=== PATIENT | male | born 1950 | race Caucasian/White ===

== ENCOUNTER 2021-07-23 22:08 | Inpatient (IN) | payer MEDICARE, SELFPAY ==
[2021-07-23 21:06] VITALS: BMI 26.9
--- NOTE | 2021-07-23 21:19 | PCM.HP.STD ---
[facility] - General General Date of Admission: 07/23/21 HPI Narrative BETTY CALIX, is a 71 M with a significant history of diabetes mellitus; asthma; hypertension; upper lipidemia; and BPH who was transferred from outside hospital ED ([place], [place]). Patient went to outside hospital ED on 07/22/2021 and then on 07/23/2021. Patient reported that on 07/22/2021 while sitting watching TV he had abdominal pain. He described abdominal pain initially as diffuse and of severity 7 out of 10. He described the pain quality as dull. Associated with symptom is nausea and vomiting. On 07/22/2021 lab work showed leukocytosis. Patient was instructed to follow-up with his PCP. However because his PCPs office was closed on 07/23/2021 he went back to the outside emergency department and was transferred to our hospital because of abnormal CT of the abdomen and pelvis. Although CT of the abdomen and pelvis on 07/22/2021 was unremarkable; a CT of abdomen and pelvis on 07/23/2021 was concerning. On 07/23/2021 patient's abdominal pain became more localized to his right upper quadrant. There are no ameliorating factors to the pain. The pain is aggravated by lying on his right side or by applying pressure to his abdomen. On 07/23/2021 patient did not have any nausea or vomiting. He denies constipation or diarrhea. REPLACED BY [facility] Medical History Asthma BPH (benign prostatic hyperplasia) Diabetes HTN (hypertension) Hyperlipidemia Home Medications C,E,zinc,copper [id number] [Ocuvite Adult 50 Plus] 1 cap PO DAILY 07/23/21 [History Last Taken Unknown] aspirin 81 mg PO DAILY 07/23/21 [History Last Taken Unknown] atorvastatin 40 mg PO QHS 07/23/21 [History Last Taken Unknown] cyanocobalamin (vitamin B-12) QMONTH 07/23/21 [History Last Taken Unknown] empagliflozin [Jardiance] 25 mg PO DAILY 07/23/21 [History Last Taken Unknown] finasteride 5 mg PO DAILY 07/23/21 [History Last Taken Unknown] fluticasone propionate 2 spray INTRANASAL DAILY 07/23/21 [History Last Taken Unknown] loratadine 10 mg PO DAILY 07/23/21 [History Last Taken Unknown] metformin 1,000 mg PO BID 07/23/21 [History Last Taken Unknown] montelukast 10 mg PO DAILY 07/23/21 [History Last Taken Unknown] multivitamin with iron-mineral [Multi M Vitamin] 1 tab PO DAILY 07/23/21 [History Last Taken Unknown] quinapril 10 mg PO DAILY 07/23/21 [History Last Taken Unknown] semaglutide [Rybelsus] 7 mg PO DAILY 07/23/21 [History Last Taken Unknown] Allergy/AdvReac Type Severity Reaction Status Date / Time No Known Allergies Allergy Verified 07/23/21 21:01 Family History Other Alzheimer disease CVA (cerebral vascular accident) Heart disease Surgical History no surgical history no surgical history Social History Smoking Status: Former smoker ROS ROS Narrative Constitutional: Denies fever, chills, fatigue, and change in weight Eyes: Denies blurry vision, change in eye color, change in vision, discharge from eye(s), double vision, erythema, eye pain, loss of vision or other HEENT: Denies abnormal hearing, dysphagia, ear pain, epistaxis, headache(s), hearing loss, nasal congestion, nasal discharge, post nasal drip, sinus pressure, sore throat or other Cardiovascular: Denies chest pain or palpitations. Denies dyspnea on exertion, orthopnea and paroxysmal nocturnal dyspnea Respiratory/Chest: Denies cough, excessive phlegm production, shortness of breath with exertion and wheezing Gastrointestinal: Reports abdominal pain, nausea and vomiting. Denies coffee ground emesis, constipation, diarrhea, dyspepsia, hematemesis, hematochezia, loose stools, melena, nausea, vomiting or other Genitourinary: Denies burning urination, difficulty urinating, dysuria, hematuria, nocturia, urinary frequency, urinary hesitancy, urinary incontinence, urinary urgency or other Musculoskeletal: Denies arthralgias, back pain, joint pain, joint stiffness, joint swelling, myalgias, neck pain or other Neurologic: Denies abnormal gait, abnormal speech, confusion, disequilibrium, dizziness, focal weakness, headache(s), numbness, paresthesias, seizure-like activity, seizures, syncope, tingling, tremor(s) or other Psychiatric: Denies anxiety, depression, homicidal ideation, suicidal ideation or other Endocrinology: Denies change in body appearance, cold intolerance, excessive sweating, heat intolerance, polydipsia, polyuria or other Hematologic/Lymphatic: Denies anemia, easy bleeding, easy bruising, lymphadenopathy or other Integumentary: Denies rashes Allergic/Immunologic: Denies rhinitis, hives, eczema, asthma or other Vital Signs Vital Signs Vital Signs: Weight Weight: 82.781 kg Body Mass Index (BMI) 26.9 Physical Exam Narrative Physical exam: General: Well-nourished, well-developed. Head: Normocephalic, atraumatic, no tenderness Eyes: PERRLA, EOMI ENT, no trauma, moist mucous membranes, no rhinorrhea Neck: Nontender, full range of motion, no spinal tenderness, deformities, step-off CVS: Tachycardia. S1-S2 present. No murmur, gallop or rub. Respiratory : Right base with rales. No wheezing. Chest wall nontender. Abdomen: Soft, normal bowel sounds. Tender right upper quadrant. : Deferred Back: Nontender, no CVA tenderness, no midline spinal tenderness, deformities, step-offs Extremities: Nontender full range of motion, no trauma Skin: Normal color, no trauma, abrasions Neuro: Alert, oriented, cranial nerves II through XII grossly intact. Psychiatry: Normal mood. Normal affect. Not depressed. Not anxious. Assessment & Plan Assessment/Plan (1) Left upper quadrant pain: PLAN: Left upper quadrant pain Differential diagnoses include cholecystitis; duodenitis; biliary disease or other. On presentation to our hospital patient had a low-grade fever of 99.[address]. From outside records CT abdomen and pelvis on 07/22/2021 was not impressive. However CT of the abdomen and Pelvis on 07/23/2021 showed interval development, inflammatory/edematous change right upper quadrant, mesenteric fat at the level of the proximal jejunum and gallbladder with differential acalculous cystitis, duodenal ulcer disease with secondary inflammation of the gallbladder. CTPA at outside hospital was unremarkable and ultrasound of right upper quadrants abdomen was also unremarkable. Of concern is that patient total bilirubin on 07/22/2021 was 1 but on 07/23/2021 his total bilirubin increased to 1.9. Actual images was not available to be personally interpreted. At outside hospital ED patient met SIRS criteria with heart rate of 122-130; white count of 16.6 on 07/22/2021; and on 07/23/2021 white count increased to 22.5. Lactic acid was 3.3. Of note patient is on Metformin. Received vancomycin and Zosyn at outside hospital. Will not continue vancomycin at this time. Zosyn ordered. Protonix ordered. Clear liquids ordered. GI consult. Trend lactic acid. Blood culture x2 was obtained at outside hospital ED; follow results. UA at outside hospital ED did not show any evidence of infection. Negative Covid PCR at outside hospital ED. Lipase was unremarkable. High sensitive troponin x2 was unremarkable.. Repeat chest x-ray in a.m. because of Rales at right base. Of note patient denied any shortness of breath or coughing. Diabetes mellitus Patient with hyperglycemia with blood glucose of 147 at outside hospital. Hold Metformin. Continue Jardiance Patient stopped his semaglutide for many months and began about , 07/17/2021. Side effects of semaglutide includes abdominal pain. Hold semaglutide for now. Accu-Chek QA CHS with correction scale insulin ordered. Hypertension Blood pressure is not within goal Home blood pressure medication continued. Trend blood pressure and adjust blood pressure medications. DVT Prophylaxis: SCD ordered. Charges/Coding Visit Charges Inpatient E&M: 02341 In Hosp L3
[2021-07-23 22:00] VITALS: PULSE 117; RESP 16; O2SAT 97
[2021-07-23 22:20] VITALS: BP 132/82; PULSE 117; RESP 16; TEMP 37.5; O2SAT 97
[2021-07-23 22:21] VITALS: BP 132/82; PULSE 117; RESP 16; TEMP 37.5; O2SAT 97
[2021-07-23] MEDS: Acetaminophen 325 MG Tablet 650 MG PO (22:28)
[2021-07-23] MEDS: 0.9% Normal Saline 1,000 ML 75 ML IV (22:29)
[2021-07-23 22:35] VITALS: PULSE 116
--- NOTE | 2021-07-23 22:52 | PCS.PANDOC ---
PANDEMIC DOCUMENTATION INITIATED: Date: 04/14/2021 Time: 190
[2021-07-23 23:32] LABS: Lactic Acid 1.5 mmol/L (0.4-1.9)
[2021-07-23] MEDS: Atorvastatin Calcium 40 MG Tablet PO (23:33)
[2021-07-23 23:46] LABS: Bedside Glucose 100 mg/dL (70-110)
[2021-07-24] VITALS (10 sets, daily range): BP systolic 102–125; BP diastolic 69–80; PULSE 92–112; RESP 16–18; TEMP 36.8–37.3; O2SAT 93–97
--- NOTE | 2021-07-24 01:09 | NURSING ---
pandemic emergency documentation
--- NOTE | 2021-07-24 05:55 | RAD_ITS ---
STUDY: X-RAY CHEST REASON FOR EXAM: Male, 71 years old. Abdominal pain TECHNIQUE: PA and lateral views of the chest. COMPARISON: None. FINDINGS: Bilateral basilar airspace disease possibly chronic in nature with marked shallow inspiratory level, mild elevation of the right hemidiaphragm. There is mild interstitial prominence with areas of hyperinflation. There is no demonstrated pleural abnormality. Normal size heart. Normal mediastinum and alfonso. Normal visualized pulmonary arteries. Normal extreme visualized aortic arch and descending thoracic aorta. There are diffuse degenerative changes of the visualized thoracic spine. Normal visualized ribs, clavicles, and shoulders. There is no demonstrated abnormality of the visualized soft tissue structures of the upper abdomen. RAD/Chest PA and Lateral IMPRESSION: Possible chronic interstitial lung disease in the lung bases, component of atelectasis and compression of parenchyma. Infiltrate in the correct clinical settings not separable. No prior films available for stability assessment. Electronically Signed: Erin Echeverria MD at 10:30 EST , Service support ,
[2021-07-24 06:07] LABS: Absolute Neutrophil Count 16.2 X10^3/uL (2.0-7.7); Basophil# 0.02 X10^3/uL; Basophil% 0.1 % (0-1); Hematocrit 43.1 % (40-54); Hemoglobin 13.9 g/dL (13.0-16.5); Lymphocyte % 4.8 % (19-41); Mean Corp Hgb Conc 32.3 g/dL (32-36); Mean Corpuscular Hgb 29.6 pg (27.0-32.0); Mean Corpuscular Volume 91.9 fL (80-94); Mean Platelet Vol. 10.8 fl (6.2-12.0); Monocyte# 1.26 X10^3/uL; Monocyte% 6.8 % (0-10); NRBC Flagged by Analyzer 0 % (0-5); Neutrophil # 16.19 X10^3/uL (2.7-7.7); Neutrophil % 86.9 % (47-70); Platelet Count 131 K/mm3 (150-450); RBC Distribution Width CV 14.8 % (11.6-14.6); RBC Distribution Width SD 49.8 fl (35.1-43.9); Red Blood Count 4.69 M/mm3 (4.6-6.2); White Blood Count 18.6 K/mm3 (4.4-11.0)
[2021-07-24 06:42] LABS: ALB/GLOB Ratio 0.6 RATIO (0.9-2.4); AST(SGOT) 22 U/L (15-37); Alanine Aminotransfer ALT/SGPT 20 U/L (16-61); Albumin, Serum 2.2 g/dL (3.2-5.0); Alkaline Phosphatase 49 U/L (45-117); Anion Gap 11 (5-15); BUN 20 mg/dL (7-18); BUN/Creat Ratio 23.9 RATIO (10-20); Calcium,Total 8.7 mg/dL (8.5-10.1); Chloride 105 mmol/L (98-107); Creatinine, Serum 0.84 mg/dL (0.70-1.30); EST Glomerular Filtration Rate 95 mL/min (>60); Est Glom Filt Rate - Afr Amer 115 mL/min (>60); Estimated Creatinine Clearance 78.32 ml/min; Globulin 3.7 g/dL (2.2-4.2); Glucose 94 mg/dL (74-106); Protein, Total 5.9 g/dL (6.4-8.2); Sodium Level 137 mmol/L (136-145)
[2021-07-24 07:01] LABS: Bedside Glucose 126 mg/dL (70-110)
[2021-07-24] MEDS: Fluticasone 0.05% 1 SPRAY NASAL.SRY 2 SPRAY NASAL (08:57)
[2021-07-24] MEDS: Multivitamin (Healthy Eyes) Capsule 1 CAP PO (08:59)
[2021-07-24] MEDS: Montelukast 10 MG Tablet PO (08:59)
[2021-07-24] MEDS: Loratadine 10 MG Tablet PO (08:59)
[2021-07-24] MEDS: Multivitamins,Ther W-Minerals Tablet 1 TABLET PO (08:59)
[2021-07-24] MEDS: Finasteride 5 MG Tablet PO (08:59)
[2021-07-24] MEDS: Aspirin 81 MG TAB.CHEW PO (08:59)
[2021-07-24] MEDS: Lisinopril 10 MG Tablet PO (08:59)
--- NOTE | 2021-07-24 09:43 | PN.HOSP_ITS ---
Documented by User: Katherin Escobar NP-C 07/24/21 09:51 Subjective Subjective Patient seen and examined. Patient lying in bed no distress noted. Patient states pain is improved from initial presentation, currently 3-4 out of 10. Objective Data Objective Data Vital Signs: Vital Signs Temp Pulse Resp BP Pulse Ox 99.1 F 102 H 16 122/76 H 95 07/24/21 08:50 07/24/21 08:50 07/24/21 08:50 07/24/21 08:50 07/24/21 08:50 Oxygen Delivery Method Room Air Weight: 182 lb 8 oz Body Mass Index (BMI) 26.9 Intake & Output: Intake and Output for Last 24 Hours 07/22/21 07/23/21 07/24/21 23:59 23:59 23:59 Intake Total 941.25 / 941.25 Balance 941.25 / 941.25 Lab / Micro Data Result Diagrams: 07/24/21 05:18 07/24/21 05:18 Labs: Laboratory Results - last 24 hr 07/23/21 22:46: Lactic Acid 1.5 07/23/21 23:30: POC Glucose 100 07/24/21 05:18: WBC 18.6 H, RBC 4.69, Hgb 13.9, Hct 43.1, MCV 91.9, MCH 29.6, MCHC 32.3, RDW Std Deviation 49.8 H, RDW Coeff of Taz 14.8 H, Plt Count 131 L, MPV 10.8, Immature Gran % (Auto) 1.400 H, Neut % (Auto) 86.9 H, Lymph % (Auto) 4.8 L, [place] % (Auto) 6.8, Eos % (Auto) 0.0, Baso % (Auto) 0.1, Absolute Neuts (auto) 16.2 H, Absolute Lymphs (auto) 0.90, Nucleated RBC % 0 07/24/21 05:18: Sodium 137, Potassium 4.0, Chloride 105, Carbon Dioxide 21.0, Anion Gap 11, BUN 20 H, Creatinine 0.84, Estim Creat Clear Calc 78.32, Est GFR (MDRD) Af Amer 115, Est GFR (MDRD) Non-Af 95, BUN/Creatinine Ratio 23.9 H, Glucose 94, Calcium 8.7, Total Bilirubin 2.40 H, AST 22, ALT 20, Alkaline Phosphatase 49, Total Protein 5.9 L, Albumin 2.2 L, Globulin 3.7, Albumin/Globulin Ratio 0.6 L 07/24/21 06:55: POC Glucose 126 H Physical Exam Const alert, oriented x3 and no apparent distress HEENT head/scalp atraumatic Head and Scalp: normocephalic Eyes conjunctivae normal and no scleral icterus Neck full ROM and supple General: trachea midline Resp normal respiratory effort, normal air movement and clear to auscultation bilaterally Effort and Inspection: able to speak in complete sentences and symmetric chest movement Cardio regular rate, regular rhythm, S1 normal heart sound and S2 normal heart sound GI normal to inspection, nondistended, normoactive bowel sounds and soft to palpa tion Palpation: tender RUQ Extremity normal to inspection, full ROM and no clubbing, cyanosis or edema Peripheral Pulses: Yes pulses 2+ throughout Skin no rashes or lesions noted, no wounds and skin turgor normal Neuro oriented x3, moves all extremities, no focal motor deficits and no sensory deficits noted Sensorium / Orientation: awake and alert Psych affect normal Assessment & Plan Assessment/Plan (1) Cholecystitis, acute: PLAN: 1. Acute cholecystitis -Continue Zosyn -Continue Protonix -Continue clear liquid diet -GI consulted 2. Diabetes mellitus -Hold Metformin, semaglutide and Jardiance -AC at bedtime blood sugars with sliding scale insulin ordered 3. Hypertension -Vital signs per protocol, currently stable -Continue home medication regimen DVT prophylaxis-SCDs This patient was seen by VICKI Lang under the supervision of Dr. Obrien. Documented by User: Dr. David Obrien MD 07/24/21 12:43 Objective Data Lab / Micro Data Result Diagrams: 07/24/21 05:18 07/24/21 05:18 Charges/Coding Addendum Addendum: Dr. Obrien: I personally reviewed the chart and examined the patient, and agree with the above findings. 71-year-old male presents from an outside hospital with abdominal pain. Apparently this occurred fairly quickly as he was evaluated at the outside hospital a few days ago with a normal CT findings and then represented with worsening abdominal pain and findings consistent with pericholecystic inflammation. His white count is elevated but trending down with the addition of antibiotics. Gastroenterology is consulted and would like to repeat a CT scan of his abdomen and pelvis for further evaluation. Based on what that read is further recommendations are pending. Visit Charges Inpatient E&M: 21646 Subs Hosp L2
--- NOTE | 2021-07-24 09:58 | CT_ITS ---
We are attempting to reach an attending provider to discuss findings. An addendum with communication details will be sent when the communication is complete. STUDY: CT ABDOMEN AND PELVIS WITH CONTRAST REASON FOR EXAM: Male, 71 years old. Abdominal pain RADIATION DOSAGE (If Supplied By Facility): CTDIvol = ( 14.31 ) mGy, DLP = ( 1064.57 ) mGycm TECHNIQUE: Transaxial 3.75 mm images were obtained from the dome of the diaphragm to the symphysis pubis without oral contrast. IV 100mL Isovue-370 was administered. Sagittal and coronal images were reconstructed. Individualized dose optimization techniques were used for this CT. COMPARISON: None. FINDINGS: Chronic-appearing interstitial lung disease, component of inflammation possible. There is compression of dependent lung parenchyma, mild bronchiectasis in the right lower lobe. Minimal pleural thickening right base. Areas of hyperinflation. There is coronary artery calcification. Trace perihepatic and subhepatic fluid. Normal liver. Indistinct distended gallbladder with fat stranding in the gallbladder fossae in the subhepatic space, adjacent to the duodenum. No overt calculus detected. No choledocholithiasis or intra or extrahepatic biliary ductal dilatation. The duodenal contour is indistinct. Normal spleen. Normal pancreas. Normal bilateral adrenal glands. Bilateral perirenal stranding/fluid right greater than left. There is no obstructive uropathy, obstructive renal or ureteral calculi. Normal visualized stomach. Mild fluid and air distention of small bowel in the right upper abdomen. Abnormal duodenum with indistinct into an adjacent fat stranding. There is wall thickening of the visualized duodenal bulb, and a focal outpouching containing air and debris image 52 series 2, image 53 series 601. There are multiple colonic diverticula consistent with diverticulosis. The appendix is visualized and appears normal. There is diffuse atherosclerotic calcification of the abdominal aorta, without a demonstrated aneurysm. Normal inferior vena cava. Normal retroperitoneum. Punctate hyperattenuation at the level of the UVJs/urinary bladder wall, urinary bladder contains contrast. No wall thickening detected. There is enlargement and calcification of the prostate gland. There is a small umbilical hernia containing fat. Normal osseous structures. CT/Abdomen/Pelvis W IV Cont ONLY IMPRESSION: Abnormal appearance of right upper abdomen which may be due to duodenitis or possible ulceration. No perforation detected. A duodenal diverticulum with inflammation is not separable. Gastric antritis may be reactive in nature. Abnormal appearance off Gallbladder without calculi, however gallbladder inflammation/cholecystitis is possible possible with trace pericholecystic and perihepatic subhepatic fluid. Mild small bowel ileus without obstruction. Bilateral perirenal stranding and fluid, this can be seen with acute on chronic inflammation or chronic disease. Diffuse colonic diverticulosis, no acute diverticulitis detected. There is no appendicitis, hydronephrosis, abscess, collection, perforation or obstruction. Prostate enlargement, tiny calculi along the UVJ without obstruction versus wall calcification of the urinary bladder, minimal arteriosclerosis, degenerative changes and interstitial lung disease. No acute findings. Electronically Signed: Erin Echeverria MD at 11:48 EST , Service support ,
--- NOTE | 2021-07-24 10:45 | CON.PCM.GI_ITS ---
HPI Consult Data Date of Consult: 07/24/21 HPI Narrative HPI Narrative: BETTY CALIX, is a 71 M who presented to an outside hospital with acute onset of right upper to lower abdominal pain associated with nausea vomiting. He had no lower GI symptoms such as diarrhea, bleeding or constipation. He has a past medical history of BPH, diabetes and hypertension. He had any abdominal surgeries. He does take a baby aspirin daily basis along with multivitamins high in vitamin C, E, copper and zinc. His diabetes is under pretty good control with oral medications and diet. At an outside hospital he was discovered to have increased white blood cell count at 16,000. He also was discovered to have a lactic acidosis. He was treated with IV antibiotics and transition to oral and told to come back for further evaluation the next day. His initial CT scan did not show any acute abnormality. He came back to the hospital on the next day. His blood cultures as per the patient did not grow out anything. His repeat CT scan abdomen pelvis that did show some questionable gallbladder wall thickening and possible inflammation in the small bowel consistent with a jejunitis or enteritis. At this time he is in bed without any acute distress or worsening abdominal pain while laying there. He does get occasional cramping in the right upper quadrant and epigastric area that is nonradiating with movement. He does not have any abdominal pain with eating a clear liquid diet. He has not had a bowel movement. [facility]LY [facility] Medical History Asthma BPH (benign prostatic hyperplasia) Diabetes HTN (hypertension) Hyperlipidemia Home Medications C,E,zinc,copper [id number] [Ocuvite Adult 50 Plus] 1 cap PO DAILY 07/23/21 [History Last Taken Unknown] aspirin 81 mg PO DAILY 07/23/21 [History Last Taken Unknown] atorvastatin 40 mg PO QHS 07/23/21 [History Last Taken Unknown] cyanocobalamin (vitamin B-12) QMONTH 07/23/21 [History Last Taken Unknown] empagliflozin [Jardiance] 25 mg PO DAILY 07/23/21 [History Last Taken Unknown] finasteride 5 mg PO DAILY 07/23/21 [History Last Taken Unknown] fluticasone propionate 2 spray INTRANASAL DAILY 07/23/21 [History Last Taken Unknown] loratadine 10 mg PO DAILY 07/23/21 [History Last Taken Unknown] metformin 1,000 mg PO BID 07/23/21 [History Last Taken Unknown] montelukast 10 mg PO DAILY 07/23/21 [History Last Taken Unknown] multivitamin with iron-mineral [Multi M Vitamin] 1 tab PO DAILY 07/23/21 [History Last Taken Unknown] quinapril 10 mg PO DAILY 07/23/21 [History Last Taken Unknown] semaglutide [Rybelsus] 7 mg PO DAILY 07/23/21 [History Last Taken Unknown] Allergy/AdvReac Type Severity Reaction Status Date / Time No Known Allergies Allergy Verified 07/23/21 21:01 Family History Other Alzheimer disease CVA (cerebral vascular accident) Heart disease Surgical History no surgical history Social History Smoking Status: Former smoker ROS Review of Systems ROS Unobtainable: other Constitutional Constitutional: Denies fatigue, fever(s), poor appetite, weight gain or weight loss ENT HEENT: Denies mouth lesions Cardiovascular Cardiovascular: Denies abdominal bloating, abdominal edema or abdominal pain Respiratory/Chest Respiratory/Chest: Denies change in mental status, change in phlegm color, chest congestion or chest tightness Gastrointestinal Gastrointestinal: Denies belching, bloating, change in bowel habits, change in stool character, chewing difficulty, coffee ground emesis, constipation, cramping, diarrhea, dyspepsia, dysphagia, early satiety, excessive flatus, fecal incontinence, heartburn, hematemesis, hematochezia, hemorrhoids, loose stools, melena, nausea, odynophagia, rectal bleeding, tenesmus, vomiting or weight changes Genitourinary Genitourinary: Denies abdominal discomfort, burning urination or itching Musculoskeletal Musculoskeletal: Reports as per HPI; Denies muscle weakness or myalgias Integumentary Integumentary: Denies jaundice Neurologic Neurologic: Denies lack of coordination or weakness Psychiatric Psychiatric: Denies confusion, depression, memory loss, mood swings, paranoia or suicidal ideation Endocrine Endocrinology: Denies systems reviewed and no addt'l complaints, except as doc umented Hematologic/Lymphatic Hematologic/Lymphatic: Denies anemia, easy bleeding, easy bruising or lymphadenopathy Allergic/Immunologic Allergic/Immunologic: Denies systems reviewed and no addt'l complaints, except as documented Physical Exam Const alert General Appearance: cooperative Orientation / Consciousness: oriented to person HEENT hearing grossly normal bilaterally Head and Scalp: normal to inspection Face and Sinus: face symmetric Nose: external nose normal Mouth: oral and palatal mucosa normal Eyes conjunctivae normal General Eye: normal appearance of both eyes Neck full ROM General: normal visual inspection Lymph Lymphatic: no lymphadenopathy noted Chest inspection of chest normal and palpation of chest normal Chest: symmetrical chest wall rise Resp normal respiratory effort Effort and Inspection: able to speak in complete sentences Cardio regular rate GI non-distended Palpation: soft, tender and no hepatosplenomegaly Percussion: normal to percussion Rectal Exam: deferred Neuro Speech: speech normal Gait (Neuro): normal gait Lab / Micro Data Result Diagrams: 07/24/21 05:18 07/24/21 05:18 Labs: Laboratory Results - last 24 hr 07/23/21 22:46: Lactic Acid 1.5 07/23/21 23:30: POC Glucose 100 07/24/21 05:18: WBC 18.6 H, RBC 4.69, Hgb 13.9, Hct 43.1, MCV 91.9, MCH 29.6, MCHC 32.3, RDW Std Deviation 49.8 H, RDW Coeff of Taz 14.8 H, Plt Count 131 L, MPV 10.8, Immature Gran % (Auto) 1.400 H, Neut % (Auto) 86.9 H, Lymph % (Auto) 4.8 L, [place] % (Auto) 6.8, Eos % (Auto) 0.0, Baso % (Auto) 0.1, Absolute Neuts (auto) 16.2 H, Absolute Lymphs (auto) 0.90, Nucleated RBC % 0 07/24/21 05:18: Sodium 137, Potassium 4.0, Chloride 105, Carbon Dioxide 21.0, Anion Gap 11, BUN 20 H, Creatinine 0.84, Estim Creat Clear Calc 78.32, Est GFR (MDRD) Af Amer 115, Est GFR (MDRD) Non-Af 95, BUN/Creatinine Ratio 23.9 H, Glucose 94, Calcium 8.7, Total Bilirubin 2.40 H, AST 22, ALT 20, Alkaline Phosphatase 49, Total Protein 5.9 L, Albumin 2.2 L, Globulin 3.7, Albumin/Globulin Ratio 0.6 L 07/24/21 06:55: POC Glucose 126 H Radiology Impression Chest X-Ray 07/24/21 05:55 IMPRESSION: Possible chronic interstitial lung disease in the lung bases, component of atelectasis and compression of parenchyma. Infiltrate in the correct clinical settings not separable. No prior films available for stability assessment. Electronically Signed: Erin Echeverria MD at 10:30 EST , Service support , Assessment & Plan Assessment/Plan (1) Leukocytosis: PLAN: It is hard to tell if the leukocytosis is from acute inflammation that was previously seen on imaging or if it is a leukemoid reaction. I agree with antibiotics at this time. I will need to repeat a CT scan abdomen pelvis to make sure that the inflammation that was seen on previous CAT scan is r esolving. I will also check an ESR, CRP and repeat his lactate. His white blood cell count was 16,000 and then went up to 22,000 and is currently going down to 18.5. This is a good sign in the setting of him being afebrile, nontoxic-appearing and his pain improving. (2) Enteritis: PLAN: The differential diagnosis for the enteritis, specific jejunitis t hat was seen on imaging would be nonsteroidals such as the baby aspirin that he takes on a daily basis, viral enteritis and less likely bacterial enteritis. Also dual diagnosis would be autoimmune disease. He may require upper endoscopy to evaluate the upper GI tract. We will wait to see what the repeat labs and CT scan shows. Thank you very much for allowing me to participate in the care of this patient. Charges/Coding Visit Charges Inpatient E&M: 61065 Init Hosp L3
[2021-07-24 11:19] LABS: Erythrocyte Sedimentation Rate 26 mm/hr (0-20)
[2021-07-24 11:38] LABS: LDH 237 U/L (87-241)
[2021-07-24 11:45] LABS: Lactic Acid 2.3 mmol/L (0.4-1.9)
[2021-07-24] MEDS: 0.9% Normal Saline 1,000 ML 75 ML IV (11:48)
[2021-07-24 12:00] LABS: Bedside Glucose 90 mg/dL (70-110)
--- NOTE | 2021-07-24 12:03 | EX.PCM.PN.GI ---
Subjective Subjective Patient still resting without any worsening abdominal pain. Objective Data Objective Data Vital Signs: Vital Signs Temp Pulse Resp BP Pulse Ox 99.1 F 102 H 16 122/76 H 95 07/24/21 08:50 07/24/21 08:50 07/24/21 08:50 07/24/21 08:50 07/24/21 08:50 Oxygen Delivery Method Room Air Weight: 182 lb 8 oz Body Mass Index (BMI) 26.9 Intake & Output: Intake and Output for Last 24 Hours 07/22/21 07/23/21 07/24/21 23:59 23:59 23:59 Intake Total 1293.75 / 1293.75 Balance 1293.75 / 1293.75 Lab / Micro Data Result Diagrams: 07/24/21 05:18 07/24/21 05:18 Labs: Laboratory Results - last 24 hr 07/23/21 22:46: Lactic Acid 1.5 07/23/21 23:30: POC Glucose 100 07/24/21 05:18: WBC 18.6 H, RBC 4.69, Hgb 13.9, Hct 43.1, MCV 91.9, MCH 29.6, MCHC 32.3, RDW Std Deviation 49.8 H, RDW Coeff of Taz 14.8 H, Plt Count 131 L, MPV 10.8, Immature Gran % (Auto) 1.400 H, Neut % (Auto) 86.9 H, Lymph % (Auto) 4.8 L, [place] % (Auto) 6.8, Eos % (Auto) 0.0, Baso % (Auto) 0.1, Absolute Neuts (auto) 16.2 H, Absolute Lymphs (auto) 0.90, Nucleated RBC % 0 07/24/21 05:18: Sodium 137, Potassium 4.0, Chloride 105, Carbon Dioxide 21.0, Anion Gap 11, BUN 20 H, Creatinine 0.84, Estim Creat Clear Calc 78.32, Est GFR (MDRD) Af Amer 115, Est GFR (MDRD) Non-Af 95, BUN/Creatinine Ratio 23.9 H, Glucose 94, Calcium 8.7, Total Bilirubin 2.40 H, AST 22, ALT 20, Alkaline Phosphatase 49, Total Protein 5.9 L, Albumin 2.2 L, Globulin 3.7, Albumin/Globulin Ratio 0.6 L 07/24/21 05:18: ESR 26 H 07/24/21 05:18: Lactate Dehydrogenase 237, C-React Prot Ext Range 269.00 H 07/24/21 06:55: POC Glucose 126 H 07/24/21 11:05: Lactic Acid 2.3 H* 07/24/21 11:55: POC Glucose 90 Radiography Diagnostic Testing: Radiology Impression Chest X-Ray 07/24/21 05:55 IMPRESSION: Possible chronic interstitial lung disease in the lung bases, component of atelectasis and compression of parenchyma. Infiltrate in the correct clinical settings not separable. No prior films available for stability assessment. Electronically Signed: Erin Echeverria MD at 10:30 EST , Service support , Abdomen/Pelvis CT 07/24/21 09:58 IMPRESSION: Abnormal appearance of right upper abdomen which may be due to duodenitis or possible ulceration. No perforation detected. A duodenal diverticulum with inflammation is not separable. Gastric antritis may be reactive in nature. Abnormal appearance off Gallbladder without calculi, however gallbladder inflammation/cholecystitis is possible possible with trace pericholecystic and perihepatic subhepatic fluid. Mild small bowel ileus without obstruction. Bilateral perirenal stranding and fluid, this can be seen with acute on chronic inflammation or chronic disease. Diffuse colonic diverticulosis, no acute diverticulitis detected. There is no appendicitis, hydronephrosis, abscess, collection, perforation or obstruction. Prostate enlargement, tiny calculi along the UVJ without obstruction versus wall calcification of the urinary bladder, minimal arteriosclerosis, degenerative changes and interstitial lung disease. No acute findings. Electronically Signed: Erin Echeverria MD at 11:48 EST , Service support , Physical Exam Const alert General Appearance: cooperative Orientation / Consciousness: oriented to person HEENT hearing grossly normal bilaterally Head and Scalp: normal to inspection Face and Sinus: face symmetric Nose: external nose normal Mouth: oral and palatal mucosa normal Eyes conjunctivae normal General Eye: normal appearance of both eyes Neck full ROM General: normal visual inspection Lymph Lymphatic: no lymphadenopathy noted Chest inspection of chest normal and palpation of chest normal Chest: symmetrical chest wall rise Resp normal respiratory effort Effort and Inspection: able to speak in complete sentences Cardio regular rate GI non-distended Percussion: normal to percussion Rectal Exam: deferred Neuro Speech: speech normal Gait (Neuro): normal gait Assessment & Plan Assessment/Plan (1) Duodenitis: PLAN: I suspect that he has duodenitis or large duodenal ulcer. It bothers me that he has so much perihepatic and fluid around the triangle of [place]. I do not suspect that he perforated this area. I just talked to the radiologist and she does not think his gallbladder has any involvement in the significant amount of inflammation that is seen in his duodenum. Also the differential diagnosis could be a duodenal diverticulitis. I agree with having him on Zosyn therapy. I will put him on a PPI drip. He will need an upper endoscopy before we can recommend any cytoprotective agent or further management. Charges/Coding Visit Charges Inpatient E&M: 36476 Subs Hosp L2
[2021-07-24 15:10] LABS: Reflex Lactate? Y
[2021-07-24 16:05] LABS: Lactic Acid 1.4 mmol/L (0.4-1.9)
[2021-07-24] MEDS: Acetaminophen 325 MG Tablet 650 MG PO (17:51)
[2021-07-24 18:00] LABS: Bedside Glucose 143 mg/dL (70-110)
[2021-07-24] MEDS: Atorvastatin Calcium 40 MG Tablet PO (20:58)
[2021-07-24 21:05] LABS: Bedside Glucose 98 mg/dL (70-110)
[2021-07-25] VITALS (12 sets, daily range): BP systolic 109–135; BP diastolic 72–83; PULSE 81–98; RESP 15–26; TEMP 36.8–37.4; O2SAT 94–98
[2021-07-25] MEDS: 0.9% Normal Saline 1,000 ML 75 ML IV ×2 (02:12→15:16)
[2021-07-25 07:18] LABS: Absolute Lymphocyte Count 0.79 X10^3/uL (0.83-4.51); Absolute Neutrophil Count 13.3 X10^3/uL (2.0-7.7); Basophil# 0.02 X10^3/uL; Basophil% 0.1 % (0-1); Eosinophil# 0.02 X10^3/uL; Eosinophils% 0.1 % (0-5); Hematocrit 39.7 % (40-54); Hemoglobin 13.3 g/dL (13.0-16.5); Lymphocyte # 0.79 X10^3/ul (0.83-4.51); Lymphocyte % 5.1 % (19-41); Mean Corp Hgb Conc 33.5 g/dL (32-36); Mean Corpuscular Hgb 30.2 pg (27.0-32.0); Mean Platelet Vol. 10.5 fl (6.2-12.0); Monocyte# 1.13 X10^3/uL; Monocyte% 7.3 % (0-10); NRBC Flagged by Analyzer 0 % (0-5); Neutrophil # 13.34 X10^3/uL (2.7-7.7); Neutrophil % 86.9 % (47-70); Platelet Count 127 K/mm3 (150-450); RBC Distribution Width CV 14.8 % (11.6-14.6); RBC Distribution Width SD 48.5 fl (35.1-43.9); Red Blood Count 4.41 M/mm3 (4.6-6.2); White Blood Count 15.4 K/mm3 (4.4-11.0)
[2021-07-25 07:47] LABS: Anion Gap 12 (5-15); BUN 22 mg/dL (7-18); BUN/Creat Ratio 25.7 RATIO (10-20); Calcium,Total 8.7 mg/dL (8.5-10.1); Chloride 107 mmol/L (98-107); Creatinine, Serum 0.86 mg/dL (0.70-1.30); EST Glomerular Filtration Rate 93 mL/min (>60); Est Glom Filt Rate - Afr Amer 112 mL/min (>60); Glucose 97 mg/dL (74-106); Potassium 3.6 mmol/L (3.5-5.1); Sodium Level 138 mmol/L (136-145)
--- NOTE | 2021-07-25 09:15 | PCM.PN.HOSP ---
Documented by User: Katherin Escobar NP-C 07/25/21 09:22 Subjective Subjective Patient seen and examined. Patient sitting in bed no distress noted. Patient awaiting to go to EGD. Patient denies needs at this time. Objective Data Objective Data Vital Signs: Vital Signs Temp Pulse Resp BP Pulse Ox 99.4 F H 87 16 121/78 H 95 07/25/21 08:19 07/25/21 08:19 07/25/21 08:19 07/25/21 08:19 07/25/21 08:19 Oxygen Delivery Method Room Air Weight: 182 lb 8 oz Body Mass Index (BMI) 26.9 Intake & Output: Intake and Output for Last 24 Hours 07/23/21 07/24/21 07/25/21 23:59 23:59 23:59 Intake Total 1863.25 / 2263.25 1544.67 / 1544.67 Output Total 1000 / 1000 Balance 1863.25 / 1663.25 544.67 / 544.67 Lab / Micro Data Result Diagrams: 07/25/21 06:20 07/25/21 06:20 Labs: Laboratory Results - last 24 hr 07/24/21 05:18: ESR 26 H 07/24/21 05:18: Lactate Dehydrogenase 237, C-React Prot Ext Range 269.00 H 07/24/21 11:05: Lactic Acid 2.3 H* 07/24/21 11:55: POC Glucose 90 07/24/21 15:31: Lactic Acid 1.4 07/24/21 17:50: POC Glucose 143 H 07/24/21 20:55: POC Glucose 98 07/25/21 06:20: WBC 15.4 H, RBC 4.41 L, Hgb 13.3, Hct 39.7 L, MCV 90.0, MCH 30.2, MCHC 33.5, RDW Std Deviation 48.5 H, RDW Coeff of Taz 14.8 H, Plt Count 127 L, MPV 10.5, Immature Gran % (Auto) 0.500, Neut % (Auto) 86.9 H, Lymph % (Auto) 5.1 L, [place] % (Auto) 7.3, Eos % (Auto) 0.1, Baso % (Auto) 0.1, Absolute Neuts (auto) 13.3 H, Absolute Lymphs (auto) 0.79 L, Nucleated RBC % 0 07/25/21 06:20: Sodium 138, Potassium 3.6, Chloride 107, Carbon Dioxide 19.0 L, Anion Gap 12, BUN 22 H, Creatinine 0.86, Estim Creat Clear Calc 76.50, Est GFR (MDRD) Af Amer 112, Est GFR (MDRD) Non-Af 93, BUN/Creatinine Ratio 25.7 H, Glucose 97, Calcium 8.7 Radiography Diagnostic Testing: Radiology Impression Chest X-Ray 07/24/21 05:55 IMPRESSION: Possible chronic interstitial lung disease in the lung bases, component of atelectasis and compression of parenchyma. Infiltrate in the correct clinical settings not separable. No prior films available for stability assessment. Electronically Signed: Erin Echeverria MD at 10:30 EST , Service support , Abdomen/Pelvis CT 07/24/21 09:58 IMPRESSION: Abnormal appearance of right upper abdomen which may be due to duodenitis or possible ulceration. No perforation detected. A duodenal diverticulum with inflammation is not separable. Gastric antritis may be reactive in nature. Abnormal appearance off Gallbladder without calculi, however gallbladder inflammation/cholecystitis is possible possible with trace pericholecystic and perihepatic subhepatic fluid. Mild small bowel ileus without obstruction. Bilateral perirenal stranding and fluid, this can be seen with acute on chronic inflammation or chronic disease. Diffuse colonic diverticulosis, no acute diverticulitis detected. There is no appendicitis, hydronephrosis, abscess, collection, perforation or obstruction. Prostate enlargement, tiny calculi along the UVJ without obstruction versus wall calcification of the urinary bladder, minimal arteriosclerosis, degenerative changes and interstitial lung disease. No acute findings. Electronically Signed: Erin Echeverria MD at 11:48 EST , Service support , ADDENDUM: 07/24/21 1214 IMPRESSION: Abnormal appearance of right upper abdomen which may be due to duodenitis or possible ulceration. No perforation detected. A duodenal diverticulum with inflammation is not separable. Gastric antritis may be reactive in nature. Abnormal appearance off Gallbladder without calculi, however gallbladder inflammation/cholecystitis is possible possible with trace pericholecystic and perihepatic subhepatic fluid. Mild small bowel ileus without obstruction. Bilateral perirenal stranding and fluid, this can be seen with acute on chronic inflammation or chronic disease. Diffuse colonic diverticulosis, no acute diverticulitis detected. There is no appendicitis, hydronephrosis, abscess, collection, perforation or obstruction. Prostate enlargement, tiny calculi along the UVJ without obstruction versus wall calcification of the urinary bladder, minimal arteriosclerosis, degenerative changes and interstitial lung disease. No acute findings. N.B. : The above Results were Read Back by Erin Echeverria MD to PAULA ARZOLA, and understanding confirmed on 07/24/2021 12:07:37 (ET). Electronically Signed: Erin Echeverria MD at 11:48 EST , Service support , ADDENDUM: 07/24/21 1215 Physical Exam Const alert, oriented x3 and no apparent distress HEENT head/scalp atraumatic Eyes conjunctivae normal and no scleral icterus Neck full ROM and supple General: trachea midline Resp normal respiratory effort, normal air movement and clear to auscultation bilaterally Effort and Inspection: able to speak in complete sentences and symmetric chest movement Cardio regular rate, regular rhythm, S1 normal heart sound and S2 normal heart sound GI normal to inspection, nondistended, normoactive bowel sounds and soft to palpation Palpation: tender RUQ Extremity normal to inspection, full ROM and no clubbing, cyanosis or edema Skin no rashes or lesions noted, no wounds and skin turgor normal Neuro oriented x3, moves all extremities, no focal motor deficits and no sensory deficits noted Sensorium / Orientation: awake and alert Psych affect normal Assessment & Plan Assessment/Plan (1) Cholecystitis, acute: PLAN: 1. Acute duodenitis -Per GI patient likely has duodenitis versus cholecystitis. -Continue Zosyn -Continue Protonix -Patient was n.p.o. at midnight for pending EGD -Patient to go for EGD today with Dr. Marcos 2. Diabetes mellitus -Hold Metformin, semaglutide and Jardiance -AC at bedtime blood sugars with sliding scale insulin ordered 3. Hypertension -Vital signs per protocol, currently stable -Continue home medication regimen DVT prophylaxis-SCDs This patient was seen by Katherin Escobar NP-C under the supervision of Dr. Obrien. Documented by User: Dr. David Obrien MD 07/25/21 11:28 Objective Data Lab / Micro Data Result Diagrams: 07/25/21 06:20 07/25/21 06:20 Charges/Coding Addendum Addendum: Dr. Obrien: I personally reviewed the chart and examined the patient, and agree with the above findings. 71-year-old male presents from an outside hospital with abdominal pain. Apparently this occurred fairly quickly as he was evaluated at the outside hospital a few days ago with a normal CT findings and then represented with worsening abdominal pain and findings consistent with pericholecystic inflammation. His white count is elevated but trending down with the addition of antibiotics. Gastroenterology is consulted and would like to repeat a CT scan of his abdomen and pelvis for further evaluation. Based on what that read is further recommendations are pending. 07/25/2021: Feels a lot better today, his CT scan yesterday looks red with inflammation surrounding the duodenum there did appear to be on my read some thickening of the duodenal wall therefore gastroenterology is planning for an EGD today. Pending what those findings are will indicate further care. In the meantime we will continue with Zosyn and PPI Visit Charges Inpatient E&M: 08508 Subs Hosp L2
[2021-07-25] MEDS: Lactated Ringers 1,000 ML 15 ML IV (11:35)
--- NOTE | 2021-07-25 12:00 | EGD_PTH ---
PATIENT: BETTY CALIX LOC: [facility] [place] U#:[id number] AGE/SX: 71/M ROOM: [facility] RE07/23/[address]: Dr. David Obrien MD : [id number] BED: 1 DIS: 07/26/2021 SPEC #: [id number] RECD: 07/25/21 12:40 STATUS: REGULO ROSSI #: [id number] PANDA: 07/25/21 12:[address]: David Obrien DEPT: SURGICAL PATHOLOGY RECD BY: Suad Ferrari ENTERED: 07/25/21 13:43 SP TYPE: EGD BIOPSY MARILU DR: MD Dr. John Daniel, Tissues: A - Duodenum, NOS B - Stomach, NOS Procedures: Surgery Specimen Level IV HEADER OPERATION: EGD PRE-OP DIAGNOSIS: Duodenitis TISSUE SUBMITTED: A. Duodenal ulcer biopsy, B. GE junction biopsy MICROSCOPIC DIAGNOSIS A. Duodenal ulcer, biopsy: Fragments of duodenal mucosa with ulceration, acute and chronic inflammation and Chase gland hyperplasia. B. GE junction, biopsy: Fragments of gastroesophageal mucosa with ulceration, acute and chronic inflammation. Intestinal metaplasia (goblet cell metaplasia) not identified. See comment. COMMENT B. Alcian blue/PAS stain with matched control is used in the evaluation of the specimen. Special stain fungi is negative for organism; matched control is appropriate. MICROSCOPIC DESCRIPTION Slides are reviewed. GROSS DESCRIPTION A. Received is one container labeled with the patient name and designated duodenal ulcer. The specimen consists of multiple irregular fragments of light shaikh soft tissue that in aggregate measure 1.5 x 0.5 x 0.1 cm. The specimen is totally submitted in one cassette. B. Received is one container labeled with the patient name and designated GE junction. The specimen consists of multiple irregular fragments of light shaikh soft tissue that in aggregate measure 1.0 x 0.2 x 0.1 cm.. The specimen is totally submitted in one cassette. /SJ:dominique 07/25/21 TC:2 CPT: 53634 x2, 66132, 96158
--- NOTE | 2021-07-25 14:00 | CASEMGMT ---
DAVID NAIK assessment: Face to Face with patient for initial transition planning/care coordination assessment. DAVID NAIK introduced self and role at [facility], pt voices understanding and consents to assessment. Pt is sitting up in bed in no distress on room air. Pt is A/Ox4 and answers all questions appropriately. Pt's is at bedside during assessment. Care providers, pharmacy, and demographics verified. Presentation: Pt was direct admit from [facility] [place] for abd pain Admitting dx: Acute art PCP: JaredFigueroa Specialists: Priscilla Bee cardio Preferred Pharmacy: [facility] Insurance: [facility] Prescription Benefit: [facility] Living Will/HPOA: Pt states no LW/HPOA and declines AD info, stating he already has info at home. LNOK: Madalyn Justice, Living Arrangements: Pt states lives with in 2 story home and states no concerns at home. Pt is independent w/ ADL's. Transportation: Pt states drives self and states no transportation concerns. DME/HHC: Pt states has the following DME: cane, BSC, and crutches. Pt states no need for any further DME. Pt states no hx of HHC or SNF. Pt states no concerns with going home at time of discharge. Pt is retired. Pt states does not smoke cigarettes but occasionally drinks ETOH. Pt states no further concerns/needs. CM to follow for any further discharge planning/needs. Advised pt to ask for CM if any further questions/concerns/needs arise, voices understanding. Pt Goal: Home Plan[place] DAVID NAIK
[2021-07-25] MEDS: miSOPROStol 200 MCG Tablet PO ×2 (18:19→22:22)
[2021-07-25 18:26] LABS: Bedside Glucose 134 mg/dL (70-110)
[2021-07-25] MEDS: Atorvastatin Calcium 40 MG Tablet PO (22:22)
[2021-07-25] MEDS: Pantoprazole Sodium 40 MG Tablet PO (22:22)
[2021-07-25 22:45] LABS: Bedside Glucose 97 mg/dL (70-110)
[2021-07-26] VITALS: PULSE 94
[2021-07-26 03:00] VITALS: PULSE 86
[2021-07-26 03:30] VITALS: BP 131/80; PULSE 97; RESP 15; RESP 16; TEMP 37.2; O2SAT 95
[2021-07-26] MEDS: 0.9% Normal Saline 1,000 ML 75 ML IV (04:37)
[2021-07-26 06:55] LABS: Bedside Glucose 93 mg/dL (70-110)
[2021-07-26 07:11] VITALS: PULSE 80
[2021-07-26 08:17] LABS: Absolute Lymphocyte Count 1.01 X10^3/uL (0.83-4.51); Absolute Neutrophil Count 11.3 X10^3/uL (2.0-7.7); Basophil# 0.04 X10^3/uL; Basophil% 0.3 % (0-1); Eosinophil# 0.14 X10^3/uL; Hematocrit 41.2 % (40-54); Hemoglobin 13.7 g/dL (13.0-16.5); Lymphocyte # 1.01 X10^3/ul (0.83-4.51); Lymphocyte % 7.3 % (19-41); Mean Corp Hgb Conc 33.3 g/dL (32-36); Mean Corpuscular Hgb 29.8 pg (27.0-32.0); Mean Corpuscular Volume 89.8 fL (80-94); Mean Platelet Vol. 10.2 fl (6.2-12.0); Monocyte# 1.24 X10^3/uL; NRBC Flagged by Analyzer 0 % (0-5); Neutrophil # 11.31 X10^3/uL (2.7-7.7); Neutrophil % 81.6 % (47-70); Platelet Count 160 K/mm3 (150-450); RBC Distribution Width CV 14.8 % (11.6-14.6); Red Blood Count 4.59 M/mm3 (4.6-6.2); White Blood Count 13.9 K/mm3 (4.4-11.0)
[2021-07-26 08:46] LABS: Anion Gap 13 (5-15); BUN 20 mg/dL (7-18); BUN/Creat Ratio 25.3 RATIO (10-20); Calcium,Total 8.2 mg/dL (8.5-10.1); Chloride 110 mmol/L (98-107); Creatinine, Serum 0.79 mg/dL (0.70-1.30); EST Glomerular Filtration Rate 102 mL/min (>60); Est Glom Filt Rate - Afr Amer 123 mL/min (>60); Estimated Creatinine Clearance 65.79 ml/min; Glucose 93 mg/dL (74-106); Potassium 3.5 mmol/L (3.5-5.1); Sodium Level 141 mmol/L (136-145)
[2021-07-26 10:06] VITALS: BP 120/74; PULSE 95; RESP 16; TEMP 37.5; O2SAT 94
[2021-07-26] MEDS: Multivitamins,Ther W-Minerals Tablet 1 TABLET PO (10:10)
[2021-07-26] MEDS: Pantoprazole Sodium 40 MG Tablet PO (10:10)
[2021-07-26] MEDS: Multivitamin (Healthy Eyes) Capsule 1 CAP PO (10:10)
[2021-07-26] MEDS: miSOPROStol 200 MCG Tablet PO (10:10)
[2021-07-26] MEDS: Finasteride 5 MG Tablet PO (10:10)
[2021-07-26] MEDS: Lisinopril 10 MG Tablet PO (10:10)
[2021-07-26] MEDS: Montelukast 10 MG Tablet PO (10:10)
[2021-07-26] MEDS: Loratadine 10 MG Tablet PO (10:11)
[2021-07-26] MEDS: Fluticasone 0.05% 1 SPRAY NASAL.SRY 2 SPRAY NASAL (10:11)
--- NOTE | 2021-07-26 10:38 | PCM.DC ---
Discharge Instructions Diet Discharge Diet: No restrictions Activity Discharge Activity: Return to Normal Activity Weight Bearing Status: Weight bearing as tolerated Dressing / Incision Call your doctor if you observe: Fever of 101 or Higher, Numbness or Tingling, Shortness of breath, Dizziness, Chest pain, Increased palpitations (irregular heartbeat) and Calf discomfort Follow Up Care Please Follow Up With: Primary care provider When: Within the next two weeks. Test Results: Test results from this visit will be discussed in further detail at your follow-up appointment, if applicable. Discharge Plan Admission Admit Date/Time: 07/23/21 22:08 Primary Reason for Your Visit: Acute duodenitis Attending Provider: David Obrien Consulting Providers: John Marcos Discharge Orders/Prescriptions Prescriptions: New pantoprazole 40 mg Tablet,Delayed Release (Dr/Ec) 40 mg PO BID 30 Days Qty: 60 RF: 1 misoprostol 200 mcg Tablet 200 mcg PO 4X/DAY 30 Days Qty: 120 RF: 0 metronidazole 500 mg tablet 500 mg PO BID 5 Days Qty: 10 RF: 0 levofloxacin 500 mg tablet 500 mg PO DAILY 5 Days Qty: 5 RF: 0 Continued atorvastatin 40 mg tablet 40 mg PO QHS RF: 0 quinapril 10 mg tablet 10 mg PO DAILY RF: 0 cyanocobalamin (vitamin B-12) 1,000 mcg/mL solution QMONTH RF: 0 metformin 1,000 mg Tablet 1,000 mg PO BID RF: 0 finasteride 5 mg tablet 5 mg PO DAILY RF: 0 loratadine 10 mg Tablet 10 mg PO DAILY RF: 0 Jardiance 25 mg tablet 25 mg PO DAILY RF: 0 montelukast 10 mg Tablet 10 mg PO DAILY RF: 0 fluticasone propionate 50 mcg/actuation spray,suspension 2 spray INTRANASAL DAILY RF: 0 multivitamin with iron-mineral Tablet 1 tab PO DAILY RF: 0 Ocuvite Adult 50 Plus 250-5-1 mg Capsule 1 cap PO DAILY RF: 0 Rybelsus 7 mg tablet 7 mg PO DAILY RF: 0 Held aspirin 81 mg Capsule 81 mg PO DAILY RF: 0 Hold Instructions: Resume on 08/01/21. Referrals / Follow Up: Marina Lugo [Other] - Within 2 Weeks John Marcos DO [STAFF PHYSICIAN] - Within 1 Month Disposition Disposition (needs filled in before D/C Order can be placed): Home, Self Care
[2021-07-26 12:11] LABS: Bedside Glucose 163 mg/dL (70-110)
--- NOTE | 2021-07-26 13:02 | PCM.DC.SUM ---
Documented by User: Bayron CURIEL 07/26/21 13:14 Providers Date of Admission: 07/23/21 Primary Care Physician: Marina Lugo Consultations 07/23/21 21:35 Consult: Gastroenterology Routine Consulting Provider: Friend,John Reason for Consult: Right upper quadrant pain EMERGENT Consult: No MD Notified: Yes Date Notified: 07/23/21 Time Notified: 21:38 Method of Notification: Verbal Reason For Visit: ACUTE CHOLECYSTITIS Diagnosis Discharge Diagnosis (1) Cholecystitis, acute: Status: Acute Code(s): K81.0 - Acute cholecystitis Medications at Discharge Home Medications Jardiance 25 mg PO DAILY 07/23/21 Ocuvite Adult 50 Plus 1 cap PO DAILY 07/23/21 Rybelsus 7 mg PO DAILY 07/23/21 aspirin 81 mg PO DAILY 07/23/21 atorvastatin 40 mg PO QHS 07/23/21 cyanocobalamin (vitamin B-12) QMONTH 07/23/21 finasteride 5 mg PO DAILY 07/23/21 fluticasone propionate 2 spray INTRANASAL DAILY 07/23/21 loratadine 10 mg PO DAILY 07/23/21 metformin 1,000 mg PO BID 07/23/21 montelukast 10 mg PO DAILY 07/23/21 multivitamin with iron-mineral 1 tab PO DAILY 07/23/21 quinapril 10 mg PO DAILY 07/23/21 levofloxacin 500 mg PO DAILY 5 Days #5 tab 07/26/21 metronidazole 500 mg PO BID 5 Days #10 tab 07/26/21 misoprostol 200 mcg PO 4X/DAY 30 Days #120 tab 07/26/21 pantoprazole 40 mg PO BID 30 Days #60 tab 07/26/21 Hospital Course Summary of Care Provided Minutes Spent on Discharge: 35 Hospital Course: Disposition: Patient to discharge home. 1. Acute duodenitis Seen by GI, who believes that the patient has duodenitis or a large duodenal ulcer. GI would like to follow-up with patient in 1 month, in the meantime patient will be initiated on Levaquin and metronidazole as well as misoprostol and a PPI twice daily. Hold home aspirin regimen. Patient to follow with primary care provider within the next 2 weeks. 2. Diabetes mellitus Continue home diabetic regimen. 3. Hypertension Stable, continue home BP regimen. Physical Exam Narrative Patient is a 71-year-old male comfortably resting in bed, alert and orient x3. Patient reports abdominal pain for admission has much improved and denies development of any new symptoms overnight. Does not appear in acute distress. Const alert, oriented x3 and no apparent distress HEENT normocephalic, head/scalp atraumatic and hearing grossly normal bilaterally Eyes PERRL, EOMs intact bilaterally and conjunctivae normal Neck no lymphadenopathy, supple and no JVD Resp normal respiratory effort, no retractions, no use of accessory muscles and clear to auscultation bilaterally Cardio regular rate, regular rhythm, no murmurs and no JVD GI normal to inspection, nondistended, normoactive bowel sounds, soft to palpation and non-tender Extremity normal to inspection, full ROM and no clubbing, cyanosis or edema Skin no rashes or lesions noted, no wounds and skin turgor normal Neuro CN's II-XII intact bilaterally Psych affect normal Weight / BMI Weight Weight: 182 lb 8 oz Body Mass Index (BMI) 26.9 ABG / Lab / Microbiology Data Result Diagrams: 07/26/21 07:43 07/26/21 07:43 Laboratory: Laboratory Results - last 24 hr 07/25/21 16:59: POC Glucose 134 H 07/25/21 22:27: POC Glucose 97 07/26/21 06:52: POC Glucose 93 07/26/21 07:43: WBC 13.9 H, RBC 4.59 L, Hgb 13.7, Hct 41.2, MCV 89.8, MCH 29.8, MCHC 33.3, RDW Std Deviation 49.0 H, RDW Coeff of Taz 14.8 H, Plt Count 160, MPV 10.2, Immature Gran % (Auto) 0.800, Neut % (Auto) 81.6 H, Lymph % (Auto) 7.3 L, [place] % (Auto) 9.0, Eos % (Auto) 1.0, Baso % (Auto) 0.3, Absolute Neuts (auto) 11.3 H, Absolute Lymphs (auto) 1.01, Nucleated RBC % 0 07/26/21 07:43: Sodium 141, Potassium 3.5, Chloride 110 H, Carbon Dioxide 18.0 L, Anion Gap 13, BUN 20 H, Creatinine 0.79, Estim Creat Clear Calc 65.79, Est GFR (MDRD) Af Amer 123, Est GFR (MDRD) Non-Af 102, BUN/Creatinine Ratio 25.3 H, Glucose 93, Calcium 8.2 L 07/26/21 11:26: POC Glucose 163 H D/C Instructions Discharge Diet: No restrictions Weight Bearing Status: Weight bearing as tolerated Call your doctor if you observe: Fever of 101 or Higher, Numbness or Tingling, Shortness of breath, Dizziness, Chest pain, Increased palpitations (irregular heartbeat) and Calf discomfort Please Follow Up With: Primary care provider When: Within the next two weeks. Meaningful Use Info Meaningful Use Diagnoses (Choose all that apply): None applicable Discharge Plan Admission Admit Date/Time: 07/23/21 22:08 Primary Reason for Your Visit: Acute duodenitis Attending Provider: David Obrien Consulting Providers: John Marcos Discharge Orders/Prescriptions Prescriptions: New pantoprazole 40 mg Tablet,Delayed Release (Dr/Ec) 40 mg PO BID 30 Days Qty: 60 RF: 1 misoprostol 200 mcg Tablet 200 mcg PO 4X/DAY 30 Days Qty: 120 RF: 0 metronidazole 500 mg tablet 500 mg PO BID 5 Days Qty: 10 RF: 0 levofloxacin 500 mg tablet 500 mg PO DAILY 5 Days Qty: 5 RF: 0 Continued atorvastatin 40 mg tablet 40 mg PO QHS RF: 0 quinapril 10 mg tablet 10 mg PO DAILY RF: 0 cyanocobalamin (vitamin B-12) 1,000 mcg/mL solution QMONTH RF: 0 metformin 1,000 mg Tablet 1,000 mg PO BID RF: 0 finasteride 5 mg tablet 5 mg PO DAILY RF: 0 loratadine 10 mg Tablet 10 mg PO DAILY RF: 0 Jardiance 25 mg tablet 25 mg PO DAILY RF: 0 montelukast 10 mg Tablet 10 mg PO DAILY RF: 0 fluticasone propionate 50 mcg/actuation spray,suspension 2 spray INTRANASAL DAILY RF: 0 multivitamin with iron-mineral Tablet 1 tab PO DAILY RF: 0 Ocuvite Adult 50 Plus 250-5-1 mg Capsule 1 cap PO DAILY RF: 0 Rybelsus 7 mg tablet 7 mg PO DAILY RF: 0 Held aspirin 81 mg Capsule 81 mg PO DAILY RF: 0 Hold Instructions: Resume on 08/01/21. Referrals / Follow Up: Marina Lugo [Other] - Within 2 Weeks John Marcos DO [STAFF PHYSICIAN] - Within 1 Month Disposition Disposition (needs filled in before D/C Order can be placed): Home, Self Care Documented by User: Dr. David Obrien MD 07/26/21 13:29 Providers Date of Admission: 07/23/21 Reason For Visit: ACUTE CHOLECYSTITIS Medications at Discharge Home Medications Jardiance 25 mg PO DAILY 07/23/21 Ocuvite Adult 50 Plus 1 cap PO DAILY 07/23/21 Rybelsus 7 mg PO DAILY 07/23/21 aspirin 81 mg PO DAILY 07/23/21 atorvastatin 40 mg PO QHS 07/23/21 cyanocobalamin (vitamin B-12) QMONTH 07/23/21 finasteride 5 mg PO DAILY 07/23/21 fluticasone propionate 2 spray INTRANASAL DAILY 07/23/21 loratadine 10 mg PO DAILY 07/23/21 metformin 1,000 mg PO BID 07/23/21 montelukast 10 mg PO DAILY 07/23/21 multivitamin with iron-mineral 1 tab PO DAILY 07/23/21 quinapril 10 mg PO DAILY 07/23/21 levofloxacin 500 mg PO DAILY 5 Days #5 tab 07/26/21 metronidazole 500 mg PO BID 5 Days #10 tab 07/26/21 misoprostol 200 mcg PO 4X/DAY 30 Days #120 tab 07/26/21 pantoprazole 40 mg PO BID 30 Days #60 tab 07/26/21 ABG / Lab / Microbiology Data Result Diagrams: 07/26/21 07:43 07/26/21 07:43 Discharge Plan Admission Admit Date/Time: 07/23/21 22:08 Primary Reason for Your Visit: Acute duodenitis Attending Provider: David Obrien Consulting Providers: John Marcos Discharge Orders/Prescriptions Prescriptions: New pantoprazole 40 mg Tablet,Delayed Release (Dr/Ec) 40 mg PO BID 30 Days Qty: 60 RF: 1 misoprostol 200 mcg Tablet 200 mcg PO 4X/DAY 30 Days Qty: 120 RF: 0 metronidazole 500 mg tablet 500 mg PO BID 5 Days Qty: 10 RF: 0 levofloxacin 500 mg tablet 500 mg PO DAILY 5 Days Qty: 5 RF: 0 Continued atorvastatin 40 mg tablet 40 mg PO QHS RF: 0 quinapril 10 mg tablet 10 mg PO DAILY RF: 0 cyanocobalamin (vitamin B-12) 1,000 mcg/mL solution QMONTH RF: 0 metformin 1,000 mg Tablet 1,000 mg PO BID RF: 0 finasteride 5 mg tablet 5 mg PO DAILY RF: 0 loratadine 10 mg Tablet 10 mg PO DAILY RF: 0 Jardiance 25 mg tablet 25 mg PO DAILY RF: 0 montelukast 10 mg Tablet 10 mg PO DAILY RF: 0 fluticasone propionate 50 mcg/actuation spray,suspension 2 spray INTRANASAL DAILY RF: 0 multivitamin with iron-mineral Tablet 1 tab PO DAILY RF: 0 Ocuvite Adult 50 Plus 250-5-1 mg Capsule 1 cap PO DAILY RF: 0 Rybelsus 7 mg tablet 7 mg PO DAILY RF: 0 Held aspirin 81 mg Capsule 81 mg PO DAILY RF: 0 Hold Instructions: Resume on 08/01/21. Referrals / Follow Up: Marina Lugo [Other] - Within 2 Weeks FriendJohn DO [STAFF PHYSICIAN] - Within 1 Month Disposition Disposition (needs filled in before D/C Order can be placed): Home, Self Care Charges/Coding Addendum Addendum: Dr. Obrien: I personally reviewed the chart and examined the patient, and agree with the above findings. 71-year-old male presents from an outside hospital with abdominal pain. Apparently this occurred fairly quickly as he was evaluated at the outside hospital a few days ago with a normal CT findings and then represented with worsening abdominal pain and findings consistent with pericholecystic inflammation. His white count is elevated but trending down with the addition of antibiotics. Gastroenterology is consulted and would like to repeat a CT scan of his abdomen and pelvis for further evaluation. Based on what that read is further recommendations are pending. 07/25/2021: Feels a lot better today, his CT scan yesterday looks red with inflammation surrounding the duodenum there did appear to be on my read some thickening of the duodenal wall therefore gastroenterology is planning for an EGD today. Pending what those findings are will indicate further care. In the meantime we will continue with Zosyn and PPI 07/26/2021: Doing much better today, he denies any pain whatsoever. EGD did show multiple ulcers and in discussion with GI they will like to see him back in a few weeks for follow-up in the meantime, they would like him to be on 5 days of Levaquin and Flagyl as well as a PPI for 8 weeks and Cytotec for 4 weeks. These prescriptions were sent to his pharmacy. I did discuss with him the plan for discharge today and he expressed understanding of the risks and benefits of going home and would like to go home today. Visit Charges Inpatient E&M: 57900 Disch Hosp
--- NOTE | 2022-05-01 06:39 | OP.EGD_ITS ---
Patient Name: Malachi Justice Procedure Date: 07/25/2021 12:05 PM Date of : 1950 Age: 71 Procedure: Upper GI endoscopy Indications: Abdominal pain in the right upper quadrant Providers: John Marcos DO Medicines: See the Anesthesia note for documentation of the administered medications Patient Profile: This is a patient. Refer to note in patient chart for documentation of history and physical. Patient has symptoms of acute right upper quadrant abdominal pain. Complications: No immediate complications. Procedure: Pre-Anesthesia Assessment: - Prior to the procedure, a History and Physical was performed, and patient medications and allergies were reviewed. The patient is competent. The risks and benefits of the procedure and the sedation options and risks were discussed with the patient. All questions were answered and informed consent was obtained. Patient identification and proposed procedure were verified by the physician. Mental Status Examination: alert and oriented. Airway Examination: normal oropharyngeal airway and neck mobility. Respiratory Examination: clear to auscultation. CV Examination: normal. Prophylactic Antibiotics: The patient does not require prophylactic antibiotics. Prior Anticoagulants: The patient has taken no previous anticoagulant or antiplatelet agents. ASA Grade Assessment: II - A patient with mild systemic disease. After reviewing the risks and benefits, the patient was deemed in satisfactory condition to undergo the procedure. The anesthesia plan was to use moderate sedation / analgesia (conscious sedation). Immediately prior to administration of medications, the patient was re-assessed for adequacy to receive sedatives. The heart rate, respiratory rate, oxygen saturations, blood pressure, adequacy of pulmonary ventilation, and response to care were monitored throughout the procedure. The physical status of the patient was re-assessed after the procedure. After obtaining informed consent, the endoscope was passed under direct vision. Throughout the procedure, the patient's blood pressure, pulse, and oxygen saturations were monitored continuously. The Endoscope was introduced through the mouth, and advanced to the second part of duodenum. The gastroscope was introduced through the mouth, and advanced to the second part of duodenum. The upper GI endoscopy was accomplished without difficulty. The patient tolerated the procedure well. The gastroscope was introduced through the mouth, and advanced to the second part of duodenum. Moderate Sedation: Moderate (conscious) sedation was administered by the endoscopy nurse and supervised by the endoscopist. The patient's oxygen saturation, heart rate, blood pressure and response to care were monitored. Total physician intraservice time was 15 minutes. Scope In: 12:12:45 PM Scope Out: 12:22:56 PM Total Procedure Duration Time 0 hours 10 minutes 11 seconds Findings: LA Grade B (one or more mucosal breaks greater than 5 mm, not extending between the tops of two mucosal folds) esophagitis with no bleeding was found 34 to 35 cm from the incisors. Biopsies were taken with a cold forceps for histology. Verification of patient identification for the specimen was done. Estimated blood loss was minimal. A few dispersed, small non-bleeding erosions were found in the entire examined stomach. There were no stigmata of recent bleeding. Three non-bleeding linear duodenal ulcers with no stigmata of bleeding were found in the second portion of the duodenum. The largest lesion was 9 mm in largest dimension. Biopsies were taken with a cold forceps for histology. Verification of patient identification for the specimen was done. A 6 mm non-bleeding diverticulum was found in the second portion of the duodenum. Impression: - LA Grade B reflux esophagitis. Rule out Enriquez's esophagus. Biopsied. - Non-bleeding erosive gastropathy. - Multiple non-bleeding duodenal ulcers with no stigmata of bleeding. Biopsied. - Non-bleeding duodenal diverticulum. Recommendation: - Advance diet as tolerated today. - Use misoprostol 200 micrograms PO QID for 4 weeks. - Use Protonix (pantoprazole) 40 mg PO BID for 8 weeks. - Continue present medications. Procedure Code(s): --- Professional --- 18653, 59, Esophagogastroduodenoscopy, flexible, transoral; with biopsy, single or multiple G0500, Moderate sedation services provided by the same physician or other qualified health hospice care consultant performing a gastrointestinal endoscopic service that sedation supports, requiring the presence of an independent trained observer to assist in the monitoring of the patient's level of consciousness and physiological status; initial 15 minutes of intra-service time; patient age 5 years or older (additional time may be reported with [id number], as appropriate) Diagnosis Code(s): --- Professional --- K21.0, Gastro-esophageal reflux disease with esophagitis K31.89, Other diseases of stomach and duodenum K26.9, Duodenal ulcer, unspecified as acute or chronic, without hemorrhage or perforation R10.11, Right upper quadrant pain K57.10, Diverticulosis of small intestine without perforation or abscess without bleeding CPT copyright 2017 [employer]. All rights reserved. The codes documented in this report are preliminary and upon sledger review may be revised to meet current compliance requirements. John Marcos DO 07/25/2021 12:41:22 PM This report has been signed electronically. Number of Addenda: 1 Note Initiated On: 07/25/2021 12:05 PM Addendum Number: 1 Addendum Date: 05/01/2022 6:35:45 AM MAC was used instead of moderate sedation for this patient. John Marcos DO 05/01/2022 6:35:49 AM This report has been signed electronically.
== END 2021-07-26 12:10 | disposition home or self-care (01) | DRG 392 ==
PROVIDERS: Hospitalist; Internal Medicine Gastroenterology; Nurse Practitioner Family; Admitting Provider Family Medicine; Visit Provider Family Medicine
PROC: 0DB98ZX Excision of Duodenum, Via Natural or Artificial Opening Endoscopic, Diagnostic (ICD-10-PCS; principal; 2021-07-25 11:55)
DX: K29.80 Duodenitis without bleeding (principal); K26.9 Duodenal ulcer, unspecified as acute or chronic, without hemorrhage or perforation; K21.00 Gastro-esophageal reflux disease with esophagitis, without bleeding; K57.10 Diverticulosis of small intestine without perforation or abscess without bleeding; E11.65 Type 2 diabetes mellitus with hyperglycemia; I10 Essential (primary) hypertension; J45.909 Unspecified asthma, uncomplicated; N40.0 Benign prostatic hyperplasia without lower urinary tract symptoms; E78.5 Hyperlipidemia, unspecified; Z79.899 Other long term (current) drug therapy; Z79.84 Long term (current) use of oral hypoglycemic drugs; Z79.82 Long term (current) use of aspirin; Z79.51 Long term (current) use of inhaled steroids; Z87.891 Personal history of nicotine dependence
CPT/HCPCS: 36415; 71046; 74177; 80048; 80053; 82962; 83605; 83615; 85025; 85652; 86140; 88305; J7030; J7120; Q9967; A4216